=== PATIENT | male | born 1985 | race Caucasian/White ===

== ENCOUNTER 2016-10-13 17:17 | Emergency (ER) ==
[2016-10-13 17:58] LABS: URINE SOURCE VOIDED
[2016-10-13] MEDS ORDERED: M.V.I.-12 10 ML, FOLIC ACID 1 MG, MAGNESIUM SULFATE 1 GM, THIAMINE 100 MG in NS 1,000 ML IV ONE (17:58)
[2016-10-13 18:01] LABS: BILIRUBIN URINE NEGATIVE (NEGATIVE); BLOOD URINE 1+ (NEGATIVE); CLARITY CLEAR (CLEAR); COLOR YELLOW; GLUCOSE URINE NEGATIVE (NEGATIVE); LEUKOCYTES URINE 1+ (NEGATIVE); NITRITE URINE NEGATIVE (NEGATIVE); PROTEIN URINE TRACE mg/dL (NEGATIVE); UROBILINOGEN URINE NORMAL
[2016-10-13 18:08] LABS: UR AMPHETAMINES QUAL NONE DETECTED (NONE DETECT); UR BARBITUATES QUAL NONE DETECTED (NONE DETECT); UR BENZODIAZEPIN QUAL NONE DETECTED (NONE DETECT); UR CANNABINOIDS QUAL PRESUMPTIVE POSITIVE (NONE DETECT); UR COCAINE QUAL NONE DETECTED (NONE DETECT); UR MDMA QUAL NONE DETECTED (NONE DETECT); UR METHADONE QUAL NONE DETECTED (NONE DETECT); UR METHAMPHETAMINE QUAL NONE DETECTED (NONE DETECT); UR OPIATES QUAL NONE DETECTED (NONE DETECT); UR OXYCODONE QUAL NONE DETECTED (NONE DETECT); UR PCP QUAL NONE DETECTED (NONE DETECT); UR TCA QUAL NONE DETECTED (NONE DETECT)
[2016-10-13 18:10] LABS: URINE CULTURE PL NEEDED? YES; URINE EPITHELIAL CELLS <10 /HPF (<10); URINE RBC <10 /HPF (<10); URINE WBC <10 /HPF (<10)
[2016-10-13 18:11] LABS: URINE CAST NONE SEEN /LPF; URINE CRYSTAL NONE SEEN /HPF
[2016-10-13 18:19] LABS: MANUAL DIFF NEEDED? NO
[2016-10-13] MEDS ORDERED: NEURONTIN PO ONE (18:24)
[2016-10-13 18:27] LABS: BASO% 0.2 % (0.0-0.8); EOS# 0.05 X1000 (0.0-0.7); EOS% 0.9 % (0.0-10.0); HEMATOCRIT 45.3 % (42.0-52.0); HEMOGLOBIN 15.5 g/dL (14.0-18.0); IMM GRAN# 0.01 X1000 (0.0-0.04); IMM GRAN% 0.2 % (0.0-0.5); LYMPH# 2.35 X1000 (1.2-3.4); LYMPH% 42.5 % (20.5-51.1); MCH 29.8 PG (27-31); MCHC 34.2 g/dL (33-37); MCV 87.1 FL (81-99); MONO# 0.64 X1000 (0.11-0.59); MONO% 11.6 % (1.7-9.3); MPV 9.8 FL (7.4-10.4); NEUT% 44.6 % (42.2-75.2); PLT 347 X1000 (130-400)
[2016-10-13 18:53] LABS: ACETAMINOPHEN < 1.2 ug/mL (10-30); AGAP 13; ALBUMIN 4.6 g/dL (3.5-5.0); ALKALINE PHOSPHATASE 59 U/L (32-122); BUN 14 mg/dL (8-22); CHLORIDE 100 mmol/L (98-107); COSMO 276; GOT 18 U/L (10-34); GPT 31 U/L (10-44); POTASSIUM 4.1 mmol/L (3.5-5.1); SODIUM 138 mmol/L (136-145); TCO2 25 mmol/L (25-35); TOTAL PROTEIN 7.9 g/dL (6.3-8.3)
[2016-10-13 19:03] LABS: FREE T4 1.2 ng/dL (0.93-1.70)
[2016-10-13] MEDS ORDERED: ATIVAN IV ONE (19:08)
--- NOTE | 2016-10-13 21:08 | PROVIDER DOCUMENTATION ---
HPI-Psychological Disorder - General Chief Complaint: Psych Stated Complaint: PSYCH/SUICIDAL Time Seen by Provider: 10/13/16 17:57 Source: patient Allergies/Adverse Reactions: Patient Allergies Allergy/AdvReac Type Severity Reaction Status Date / Time ketorolac tromethamine * Allergy Severe HIVES Verified 05/13/16 13:49 [From Toradol] codeine [Codeine] Allergy Mild HIVES Verified 10/09/16 23:49 tramadol HCl * [From Ultram] Allergy Mild HIVES Verified 10/09/16 23:49 Home Medications: Home Medication List Medication Instructions Recorded Confirmed Last Taken Type Gabapentin 800 mg PO TID 03/12/16 10/09/16 10/04/16 History Oxycodone HCl/Acetaminophen 1 each PO Q4-8H PRN PRN #14 tablet 10/10/16 Unknown Rx [Percocet 7.5-325 mg Tablet] - History of Present Illness-Psych Nature of Presenting Problem: This pt, who has a hx of PTSD, alcohol abuse and depression, presents today c complaints of alcohol abuse and suicidal thoughts. he denies any plans at this time. He states that he occasionally has these thoughts and is really here just seeking some sort of place to seek regular agency legal counsel and treatment. [facility] like [facility] are [facility] and are often hard to get in touch with. No other issues or complaints. Onset/Duration: reports: other (see hpi) Timing: reports: still present Severity: reports: mild Situational problems related to:: reports: other (PTSD) Psychiatric Complaints: reports: depressed, suicidal ideation Substance Use: reports: alcohol, marijuana Previous psych related hospitalizations?: Yes Patient arrived by:: private car Similar Symptoms Previously?: Yes Recently seen or treated by another doctor?: No Review of Systems - Adult - REVIEW OF SYSTEMS - ADULT Constitutional: reports: no symptoms reported. denies: chills, fatique Eyes: reports: no symptoms reported. denies: discharge, dry eyes Ears, Nose, Mouth & Throat: reports: no symptoms reported. denies: ear discharge, ear pain Cardiovascular: reports: no symptoms reported. denies: chest pain, edema Respiratory: reports: no symptoms reported. denies: chronic cough, cough Gastrointestinal: reports: no symptoms reported. denies: abdominal pain, hematemesis Genitourinary: reports: no symptoms reported. denies: dysuria, discharge Musculoskeletal: reports: no symptoms reported. denies: bone pain, back pain Integumentary: reports: no symptoms reported. denies: hives, hair loss Neurological: reports: no symptoms reported. denies: ataxia, dizziness/vertigo Psychiatric: reports: anxiety, alcohol/drug dependence, depression, suicidal thoughts. denies: insomnia, panic attacks Endocrine: reports: no symptoms reported Hematologic/Lymphatic: reports: no symptoms reported Allergic/Immunologic: reports: no symptoms reported All Other Systems: Reviewed and Negative Past History - Adult - PAST MEDICAL HISTORY-ADULT Review of Records: reports: Old Records Reviewed, Nursing Assessment Review, Medications Reviewed, Social history reviewed & non-contributory. Major Childhood Illnesses: reports: denies history Cardiovascular: reports: denies history Respiratory: reports: denies history Gastrointestinal: reports: denies history Obstetrical/Gynecological: reports: denies history Genitourinary: reports: denies history Musculoskeletal: reports: denies history Neurological: reports: Seizures/Epilepsy Psychiatric: reports: anxiety, depression, ptsd Endocrine/Immune: reports: denies history Other Conditions: reports: denies history - PRIOR SURGERIES/PROCEDURES Surgical/Procedure History: reports: reviewed, not pertinent, other (hypospadias ) - IMMUNIZATION STATUS Childhood Immunizations: See Nurse Assessment Flu Vaccine: See Nurse Assessment - FAMILY HISTORY Family History: reviewed, not pertinent Physical Exam-Psych Focus - Physical Exam-Psych Initial Vital Signs Reviewed: Yes Appearance: appropriate appearance, appropriate insight, neat, no apparent distress, no memory impairment. negative: impaired insight, impaired recent memory, impaired remote memory, lethargic Neurological: alert, normal mood/affect, calm, web press roll tender II-XII nml as tested, oriented x 3 Behavior/Eye Contact/Speech: cooperative, good eye contact, normal speech. negative: avoids eye contact, refused to answer, threatening eye contact Thoughts/Hallucinations: normal thought pattern, no apparent hallucination. negative: auditory hallucinations, delusions, flight of ideas, paranoid, persecution HENMT: normocephalic/atraumatic, moist mucous membranes, normal ENT inspection Neck: non-tender, full range of motion, supple, normal inspection Respiratory: chest non-tender, lungs clear, normal breath sounds, no pleuratic chest pain, no respiratory distress, no accessory muscle use Cardiovascular: normal peripheral pulses, regular rate, rhythm, no edema, no gallop, no JVD, no murmur Abdominal Exam: normal bowel sounds, non tender, soft Back Exam: normal inspection, no CVA tenderness, no vertebral tenderness Extremity: normal range of motion, non-tender, normal gait, normal inspection Integumentary: normal color, normal turgor, warm/dry Progress - PLAN OF CARE/RESULTS Progress/Plan/Lab Results: Laboratory Tests 10/13/16 10/13/16 10/13/16 17:50 17:50 18:10 WBC RBC Hgb Hct MCV MCH MCHC RDW Std Deviation Plt Count MPV Immature Gran % (Auto) Neut % (Auto) Lymph % (Auto) Rowan % (Auto) Eos % (Auto) Baso % (Auto) Immature Gran # (Auto) Neut # (Auto) Lymph # (Auto) Rowan # (Auto) Eos # (Auto) Baso # (Auto) Sodium 138 Potassium 4.1 Chloride 100 Carbon Dioxide 25 Anion Gap 13 BUN 14 Creatinine 1.2 Estimated GFR/1.73 m2 > 60 BUN/Creatinine Ratio 12 Glucose 87 Calculated Osmolality 276 Calcium 10.0 Total Bilirubin 0.40 AST 18 ALT 31 Alkaline Phosphatase 59 Total Protein 7.9 Albumin 4.6 Globulin 3.0 Albumin/Globulin Ratio 1.0 TSH Free T4 Urine Source VOIDED Urine Color YELLOW Urine Clarity CLEAR Urine pH 6.0 Ur Specific [employer] 1.020 Urine Protein TRACE A Urine Ketones TRACE Urine Blood 1+ A Urine Nitrite NEGATIVE Urine Bilirubin NEGATIVE Urine Urobilinogen NORMAL Urine Microscopic RBC <10 Urine WBC 1+ A Urine Microscopic WBC <10 Ur Epithelial Cells <10 Urine Crystals NONE SEEN Urine Bacteria 1+ Urine Casts NONE SEEN Urine Yeast NONE SEEN Urine Glucose NEGATIVE Salicylates Urine Opiates Screen NONE DETECTED Ur Oxycodone Screen NONE DETECTED Urine Methadone Screen NONE DETECTED Acetaminophen Ur Barbituates Screen NONE DETECTED Ur Tricyclics Screen NONE DETECTED Ur Phencyclidine Scrn NONE DETECTED Ur Amphetamines Screen NONE DETECTED U Methamphetamines Scrn NONE DETECTED Urine MDMA Screen NONE DETECTED U Benzodiazepines Scrn NONE DETECTED Urine Cocaine Screen NONE DETECTED U Cannabinoids Screen PRESUMPTIVE POSITIVE A Plasma/Serum Ethyl Alc 10/13/16 10/13/16 10/13/16 18:10 18:10 18:10 WBC 5.53 RBC 5.20 Hgb 15.5 Hct 45.3 MCV 87.1 MCH 29.8 MCHC 34.2 RDW Std Deviation 13.5 Plt Count 347 MPV 9.8 Immature Gran % (Auto) 0.2 Neut % (Auto) 44.6 Lymph % (Auto) 42.5 Rowan % (Auto) 11.6 H Eos % (Auto) 0.9 Baso % (Auto) 0.2 Immature Gran # (Auto) 0.01 Neut # (Auto) 2.47 Lymph # (Auto) 2.35 Rowan # (Auto) 0.64 H Eos # (Auto) 0.05 Baso # (Auto) 0.01 Sodium Potassium Chloride Carbon Dioxide Anion Gap BUN Creatinine Estimated GFR/1.73 m2 BUN/Creatinine Ratio Glucose Calculated Osmolality Calcium Total Bilirubin AST ALT Alkaline Phosphatase Total Protein Albumin Globulin Albumin/Globulin Ratio TSH 0.39 Free T4 1.20 Urine Source Urine Color Urine Clarity Urine pH Ur Specific [employer] Urine Protein Urine Ketones Urine Blood Urine Nitrite Urine Bilirubin Urine Urobilinogen Urine Microscopic RBC Urine WBC Urine Microscopic WBC Ur Epithelial Cells Urine Crystals Urine Bacteria Urine Casts Urine Yeast Urine Glucose Salicylates Urine Opiates Screen Ur Oxycodone Screen Urine Methadone Screen Acetaminophen Ur Barbituates Screen Ur Tricyclics Screen Ur Phencyclidine Scrn Ur Amphetamines Screen U Methamphetamines Scrn Urine MDMA Screen U Benzodiazepines Scrn Urine Cocaine Screen U Cannabinoids Screen Plasma/Serum Ethyl Alc 10/13/16 18:10 WBC RBC Hgb Hct MCV MCH MCHC RDW Std Deviation Plt Count MPV Immature Gran % (Auto) Neut % (Auto) Lymph % (Auto) Rowan % (Auto) Eos % (Auto) Baso % (Auto) Immature Gran # (Auto) Neut # (Auto) Lymph # (Auto) Rowan # (Auto) Eos # (Auto) Baso # (Auto) Sodium Potassium Chloride Carbon Dioxide Anion Gap BUN Creatinine Estimated GFR/1.73 m2 BUN/Creatinine Ratio Glucose Calculated Osmolality Calcium Total Bilirubin AST ALT Alkaline Phosphatase Total Protein Albumin Globulin Albumin/Globulin Ratio TSH Free T4 Urine Source Urine Color Urine Clarity Urine pH Ur Specific [employer] Urine Protein Urine Ketones Urine Blood Urine Nitrite Urine Bilirubin Urine Urobilinogen Urine Microscopic RBC Urine WBC Urine Microscopic WBC Ur Epithelial Cells Urine Crystals Urine Bacteria Urine Casts Urine Yeast Urine Glucose Salicylates < 3.00 L Urine Opiates Screen Ur Oxycodone Screen Urine Methadone Screen Acetaminophen < 1.2 L Ur Barbituates Screen Ur Tricyclics Screen Ur Phencyclidine Scrn Ur Amphetamines Screen U Methamphetamines Scrn Urine MDMA Screen U Benzodiazepines Scrn Urine Cocaine Screen U Cannabinoids Screen Plasma/Serum Ethyl Alc Orders Category Date Time Status Saline Loc NOW Care 10/13/16 17:58 Active ACETAMINOPHEN [TDM] Stat Lab 10/13/16 18:10 Completed ALCOHOL BLOOD Stat Lab 10/13/16 18:10 Completed CBC WITH ELECTRONIC DIFF [HEME] Stat Lab 10/13/16 18:10 Completed COMPREHENSIVE METABOLIC PANEL [CHEM] Stat Lab 10/13/16 18:10 Completed FREE T4 Stat Lab 10/13/16 18:10 Results SALICYLATES [TDM] Stat Lab 10/13/16 18:10 Completed TSH Stat Lab 10/13/16 18:[address] W/POSS RFLX CULT [URINALYSIS] Stat Lab 10/13/16 17:50 Completed URINE CULTURE [RM] Routine Lab 10/13/16 18:11 [address]UG SCREEN [address] Stat Lab 10/13/16 17:50 Completed VITAMIN B12 Stat Lab 10/13/16 18:10 Results Gabapentin [Neurontin] Med 10/13/16 18:24 Discontinued 800 mg PO NOW ONE Lorazepam [Ativan] Med 10/13/16 19:08 Discontinued 1 mg IV NOW ONE Mvi [M.v.i.-12] 10 ml Med 10/13/16 17:58 Discontinued Folic Acid 1 mg Magnesium Sulfate 1 gm Thiamine 100 mg 0.9% Sodium Chloride Inj [Ns] 1,000 ml IV NOW Vital Signs Temp Pulse Resp BP Pulse Ox 10/13/16 17:41 99.0 F 114 H 24 167/102 97 ketorolac tromethamine * [From Toradol] Allergy (Severe, Verified 05/13/16 13:49 ) HIVES codeine [Codeine] Allergy (Mild, Verified 10/09/16 23:49) HIVES tramadol HCl * [From Ultram] Allergy (Mild, Verified 10/09/16 23:49) HIVES Gabapentin 800 mg PO TID 03/12/16 Oxycodone HCl/Acetaminophen [Percocet 7.5-325 mg Tablet] 1 each PO Q4-8H PRN PRN #14 tablet 10/10/16 Laboratory 10/13/16 10/13/16 10/13/16 18:10 18:10 18:10 WBC 5.53 RBC 5.20 Hgb 15.5 Hct 45.3 MCV 87.1 MCH 29.8 MCHC 34.2 RDW Std Deviation 13.5 Plt Count 347 MPV 9.8 Immature Gran % (Auto) 0.2 Neut % (Auto) 44.6 Lymph % (Auto) 42.5 Rowan % (Auto) 11.6 H Eos % (Auto) 0.9 Baso % (Auto) 0.2 Immature Gran # (Auto) 0.01 Neut # (Auto) 2.47 Lymph # (Auto) 2.35 Rowan # (Auto) 0.64 H Eos # (Auto) 0.05 Baso # (Auto) 0.01 Sodium Potassium Chloride Carbon Dioxide Anion Gap BUN Creatinine Estimated GFR/1.73 m2 BUN/Creatinine Ratio Glucose Calculated Osmolality Calcium Total Bilirubin AST ALT Alkaline Phosphatase Total Protein Albumin Globulin Albumin/Globulin Ratio TSH Free T4 Urine Source Urine Color Urine Clarity Urine pH Ur Specific [employer] Urine Protein Urine Ketones Urine Blood Urine Nitrite Urine Bilirubin Urine Urobilinogen Urine Microscopic RBC Urine WBC Urine Microscopic WBC Ur Epithelial Cells Urine Crystals Urine Bacteria Urine Casts Urine Yeast Urine Glucose Salicylates < 3.00 L Urine Opiates Screen Ur Oxycodone Screen Urine Methadone Screen Acetaminophen < 1.2 L Ur Barbituates Screen Ur Tricyclics Screen Ur Phencyclidine Scrn Ur Amphetamines Screen U Methamphetamines Scrn Urine MDMA Screen U Benzodiazepines Scrn Urine Cocaine Screen U Cannabinoids Screen Plasma/Serum Ethyl Alc 10/13/16 10/13/16 10/13/16 18:10 18:10 17:50 WBC RBC Hgb Hct MCV MCH MCHC RDW Std Deviation Plt Count MPV Immature Gran % (Auto) Neut % (Auto) Lymph % (Auto) Rowan % (Auto) Eos % (Auto) Baso % (Auto) Immature Gran # (Auto) Neut # (Auto) Lymph # (Auto) Rowan # (Auto) Eos # (Auto) Baso # (Auto) Sodium 138 Potassium 4.1 Chloride 100 Carbon Dioxide 25 Anion Gap 13 BUN 14 Creatinine 1.2 Estimated GFR/1.73 m2 > 60 BUN/Creatinine Ratio 12 Glucose 87 Calculated Osmolality 276 Calcium 10.0 Total Bilirubin 0.40 AST 18 ALT 31 Alkaline Phosphatase 59 Total Protein 7.9 Albumin 4.6 Globulin 3.0 Albumin/Globulin Ratio 1.0 TSH 0.39 Free T4 1.20 Urine Source Urine Color Urine Clarity Urine pH Ur Specific [employer] Urine Protein Urine Ketones Urine Blood Urine Nitrite Urine Bilirubin Urine Urobilinogen Urine Microscopic RBC Urine WBC Urine Microscopic WBC Ur Epithelial Cells Urine Crystals Urine Bacteria Urine Casts Urine Yeast Urine Glucose Salicylates Urine Opiates Screen NONE DETECTED Ur Oxycodone Screen NONE DETECTED Urine Methadone Screen NONE DETECTED Acetaminophen Ur Barbituates Screen NONE DETECTED Ur Tricyclics Screen NONE DETECTED Ur Phencyclidine Scrn NONE DETECTED Ur Amphetamines Screen NONE DETECTED U Methamphetamines Scrn NONE DETECTED Urine MDMA Screen NONE DETECTED U Benzodiazepines Scrn NONE DETECTED Urine Cocaine Screen NONE DETECTED U Cannabinoids Screen PRESUMPTIVE POSITIVE A Plasma/Serum Ethyl Alc 10/13/16 17:50 WBC RBC Hgb Hct MCV MCH MCHC RDW Std Deviation Plt Count MPV Immature Gran % (Auto) Neut % (Auto) Lymph % (Auto) Rowan % (Auto) Eos % (Auto) Baso % (Auto) Immature Gran # (Auto) Neut # (Auto) Lymph # (Auto) Rowan # (Auto) Eos # (Auto) Baso # (Auto) Sodium Potassium Chloride Carbon Dioxide Anion Gap BUN Creatinine Estimated GFR/1.73 m2 BUN/Creatinine Ratio Glucose Calculated Osmolality Calcium Total Bilirubin AST ALT Alkaline Phosphatase Total Protein Albumin Globulin Albumin/Globulin Ratio TSH Free T4 Urine Source VOIDED Urine Color YELLOW Urine Clarity CLEAR Urine pH 6.0 Ur Specific [employer] 1.020 Urine Protein TRACE A Urine Ketones TRACE Urine Blood 1+ A Urine Nitrite NEGATIVE Urine Bilirubin NEGATIVE Urine Urobilinogen NORMAL Urine Microscopic RBC <10 Urine WBC 1+ A Urine Microscopic WBC <10 Ur Epithelial Cells <10 Urine Crystals NONE SEEN Urine Bacteria 1+ Urine Casts NONE SEEN Urine Yeast NONE SEEN Urine Glucose NEGATIVE Salicylates Urine Opiates Screen Ur Oxycodone Screen Urine Methadone Screen Acetaminophen Ur Barbituates Screen Ur Tricyclics Screen Ur Phencyclidine Scrn Ur Amphetamines Screen U Methamphetamines Scrn Urine MDMA Screen U Benzodiazepines Scrn Urine Cocaine Screen U Cannabinoids Screen Plasma/Serum Ethyl Alc Pt was evaluated by [facility]. They feel that he is safe to go home c his family and be treated as an outpt and this is what the pt desires as well. An action was faxed and signed by the pt. He will go home in the care of his mother. - PSYCHIATRIC Medically clear for psych eval and/or transfer to [facility].: Yes Departure - Departure Time of Disposition Order: 21:07 DIAGNOSIS: PTSD (post-traumatic stress disorder), Alcohol abuse, Suicidal thoughts Disposition: HOME 01 Certified Medical Emergency: Emergent Condition: Stable Additional Instructions: Follow up as discussed with [facility] counselor. Return to the ER for any new or worsening symptoms. Refrain from alcohol use. ED Follow Up Instructions: You have been treated by a care provider in the Emergency Department. These instructions are being provided to you so you can have an understanding of how to care for yourself upon discharge. Upon discharge from the Emergency Department, you are responsible for making arrangements for follow-up care by a physician of your choice. Take all prescribed medications as directed. Return to the Emergency Department immediately for any new or worsening symptoms. You may call the Physician Referral phone number at [phone] to obtain a list of Physicians who are taking new patients. Attestation - Physician/ ALEXI Attestation Patient care was provided by Advanced Practice Provider:: Yes Advanced Practice Provider:: Efren Crawford Advanced Practice Provider documentation review:: The Mid-level provider documentation, treatment plan and medical decision making was reviewed by the physician who agrees with all treatment and medical decision making by the MLP.
[2016-10-13 21:27] VITALS: BP 151/89
== END 2016-10-13 21:27 | disposition home or self-care (01) ==
LOC: P.ED 17:17
DX: F43.10 Post-traumatic stress disorder, unspecified (principal); R45.851 Suicidal ideations; F10.10 Alcohol abuse, uncomplicated; Z79.899 Other long term (current) drug therapy
CPT/HCPCS: 80053; 80305; 81001; 82607; 84439; 84443; 85025; 87088; 96365; 96366; 96375; G0480; J2060; J3411; J3475; J7030; 80320; 80324; 80329

== ENCOUNTER 2016-11-02 05:10 | Emergency (ER) ==
[2016-11-02 05:23] VITALS: BP 123/86
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
[2016-11-02] MEDS ORDERED: PHENERGAN IM ONE (05:42)
[2016-11-02] MEDS ORDERED: PHENERGAN ONE (05:44)
== END 2016-11-02 06:10 | disposition home or self-care (01) ==
LOC: P.ED 05:10
DX: S51.812D Laceration without foreign body of left forearm, subsequent encounter (principal); S81.811D Laceration without foreign body, right lower leg, subsequent encounter; R52 Pain, unspecified; R11.0 Nausea; X99.8XXD Assault by other sharp object, subsequent encounter
CPT/HCPCS: 96372; J2550

== ENCOUNTER 2016-11-02 15:00 | Emergency (ER) ==
[2016-11-02] MEDS ORDERED: ATIVAN IV ONE ×2 (15:25→22:40)
[2016-11-02] MEDS ORDERED: NS 1,000 ML IV ONE (15:25)
[2016-11-02 16:14] LABS: MANUAL DIFF NEEDED? NO
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
[2016-11-02 16:27] LABS: BASO% 0.2 % (0.0-0.8); EOS% 1.6 % (0.0-10.0); HEMATOCRIT 34.3 % (42.0-52.0); LYMPH# 2.96 X1000 (1.2-3.4); LYMPH% 48.1 % (20.5-51.1); MCH 31.6 PG (27-31); MCV 90.3 FL (81-99); MONO# 0.92 X1000 (0.11-0.59); NEUT% 35.1 % (42.2-75.2); PLT 249 X1000 (130-400)
[2016-11-02 16:41] LABS: AGAP 16; ALBUMIN 4.2 g/dL (3.5-5.0); ALKALINE PHOSPHATASE 48 U/L (32-122); BUN 15 mg/dL (8-22); CHLORIDE 101 mmol/L (98-107); COSMO 275; GOT 40 U/L (10-34); GPT 63 U/L (10-44); POTASSIUM 3.7 mmol/L (3.5-5.1); SODIUM 138 mmol/L (136-145); TCO2 21 mmol/L (25-35); TOTAL BILIRUBIN 0.44 mg/dL (0.20-1.00); TOTAL PROTEIN 6.9 g/dL (6.3-8.3)
[2016-11-02 16:53] LABS: FREE T4 0.97 ng/dL (0.93-1.70)
[2016-11-02 16:56] LABS: URINE CULTURE NEEDED? NO; URINE MICRO REVIEW NEEDED? NO; URINE SOURCE CLEAN CATCH
[2016-11-02 17:01] LABS: BILIRUBIN URINE NEGATIVE (NEGATIVE); BLOOD URINE NEGATIVE (NEGATIVE); COLOR YELLOW; GLUCOSE URINE NEGATIVE (NEGATIVE); LEUKOCYTES URINE NEGATIVE (NEGATIVE); NITRITE URINE NEGATIVE (NEGATIVE); PROTEIN URINE NEGATIVE (NEGATIVE); SP GRAVITY URINE 1.025; TURBIDITY URINE CLEAR (CLEAR); UR EPITHELIAL CELLS <10 /HPF (<10); URINE BACTERIA NEGATIVE /HPF; URINE RBC <10 /HPF (<10); URINE WBC <10 /HPF (<10); UROBILINOGEN URINE 2 mg/dL (NORMAL)
[2016-11-02 17:43] LABS: UR AMPHETAMINES QUAL NONE DETECTED (NONE DETECT); UR BARBITUATES QUAL NONE DETECTED (NONE DETECT); UR BENZODIAZEPIN QUAL PRESUMPTIVE POSITIVE (NONE DETECT); UR CANNABINOIDS QUAL PRESUMPTIVE POSITIVE (NONE DETECT); UR COCAINE QUAL NONE DETECTED (NONE DETECT); UR METHADONE QUAL NONE DETECTED (NONE DETECT); UR OPIATES QUAL PRESUMPTIVE POSITIVE (NONE DETECT); UR OXYCODONE QUAL NONE DETECTED (NONE DETECT); UR PCP QUAL NONE DETECTED (NONE DETECT)
[2016-11-02] MEDS ORDERED: TYLENOL PO ONE (20:56)
[2016-11-02] MEDS ORDERED: M.V.I.-12 10 ML, FOLIC ACID 1 MG, MAGNESIUM SULFATE 1 GM, THIAMINE 100 MG in NS 1,000 ML IV ONE (22:40)
[2016-11-03] MEDS ORDERED: NEURONTIN PO ONE ×2 (01:12→11:01)
--- NOTE | 2016-11-03 07:20 | Diag Imaging Result Document ---
PROCEDURE NAME: HEAD W/O CONTRAST - 11/02/2016 CT BRAIN WITHOUT CONTRAST: TECHNIQUE: Dose-reduction protocol. COMPARISON: Compared to 05/15/2015. FINDINGS: No parenchymal hemorrhage. No epidural or subdural hematoma. No subarachnoid hemorrhage. No mass identified on this noncontrasted exam. No hydrocephalus. No sinus opacification. IMPRESSION: No hemorrhage. Negative brain CT without contrast: A preliminary report was given at 11:00 p.m.
[2016-11-03] MEDS ORDERED: MOTRIN PO ONE (08:41)
[2016-11-03] MEDS ORDERED: ATIVAN IV ONE ×2 (09:38→16:59)
[2016-11-03] MEDS ORDERED: KEFLEX PO ONE (11:01)
[2016-11-03] MEDS ORDERED: ATIVAN ONE (17:02)
[2016-11-03 17:08] VITALS: BP 122/70
== END 2016-11-03 17:06 ==
LOC: ED 15:00
DX: R45.851 Suicidal ideations (principal); S41.112D Laceration without foreign body of left upper arm, subsequent encounter; S81.811D Laceration without foreign body, right lower leg, subsequent encounter; Z79.899 Other long term (current) drug therapy; X99.8XXD Assault by other sharp object, subsequent encounter
CPT/HCPCS: 70450; 80053; 81001; 82607; 84146; 84439; 84443; 85025; 96365; 96375; 96376; G0480; J2060; J3411; J3475; J7030; 80320; 80324; 80345; 80346; 80349; 80353; 80358; 80361; 80365; 83992